=== PATIENT | male | born 1975 ===

== ENCOUNTER 2017-07-22 09:20 | Outpatient (CLI) | payer BC ==
--- NOTE | 2017-07-22 11:22 | Diagnostic Imaging Report ---
Indication: Dysphagia Technique: Patient ingested effervescent granules upright and prone position, oral thick and thin liquid barium, and rapid sequence photospot and overhead images were obtained Comparison: none Findings: Mild distal esophageal dysmotility is noted, with some tertiary contractions. However, there is good forward propulsion of contrast with the patient upright. With the patient prone, some contrast retention within the esophagus is noted. Small sliding-type hiatal hernia noted with the patient prone. No definite gastroesophageal reflux seen. Impression: Mild distal esophageal dysmotility Small sliding-type hiatal hernia No anatomic stricture demonstrated
== END 2017-07-22 11:20 | disposition home or self-care (01) ==
LOC: RAD 09:20
DX: R13.10 Dysphagia, unspecified (principal); K44.9 Diaphragmatic hernia without obstruction or gangrene
CPT/HCPCS: 74220